=== PATIENT | female | born 1960 | race Caucasian/White ===

== ENCOUNTER 2018-11-17 11:20 | Outpatient (CLI) | payer OTHER ==
[~2018-11-17 11:20] MED LIST: ATIVAN0.5 MG PO; DALMANE15 MG PO; HYZAAR 100/25 T1 TAB PO; LITHOBID300 MG PO; PROZAC20 MG PO; SEROQUEL300 MG PO; VERAPAMIL HCL240 MG PO
== END 2018-11-17 17:00 | disposition home or self-care (01) ==
LOC: TOM 11:20
DX: K56.50 Intestinal adhesions [bands], unspecified as to partial versus complete obstruction (principal); R10.84 Generalized abdominal pain; R19.5 Other fecal abnormalities